=== PATIENT | male | born 1985 | race Asian ===

== ENCOUNTER 2018-12-02 14:43 | Emergency (ER) | payer SELFPAY ==
[~2018-12-02] VITALS: Ht 170.2 cm; Wt 80.0 kg
[~2018-12-02 14:43] MED LIST: LACT1CAP26 PO
[2018-12-02 14:53] VITALS: BP 136/96
== END 2018-12-02 16:32 | disposition left against medical advice (07) ==
LOC: ER 14:43
DX: Z02.89 Encounter for other administrative examinations (principal); Z53.21 Procedure and treatment not carried out due to patient leaving prior to being seen by health care provider; Z79.899 Other long term (current) drug therapy

== ENCOUNTER 2021-12-23 08:18 | Emergency (ER) | payer MEDICAID, OTHER ==
[~2021-12-23] VITALS: Ht 170.2 cm; Wt 84.1 kg
[2021-12-23 09:05] VITALS: BP 154/114
[2021-12-23] MEDS ORDERED: ACET-3068 PO (09:38)
[2021-12-23] MEDS ORDERED: PENI500T2 PO (09:38)
[2021-12-23] MEDS ORDERED: HYDROcodone/acetaminophen 10/325mg tab PO ONE (09:40)
[2021-12-23] MEDS ORDERED: penicillin V potassium 500mg tablet PO ONE (09:40)
== END 2021-12-23 10:18 | disposition home or self-care (01) ==
LOC: ER 08:19
DX: K04.7 Periapical abscess without sinus (principal); J45.909 Unspecified asthma, uncomplicated; F15.20 Other stimulant dependence, uncomplicated
CPT/HCPCS: 99283

== ENCOUNTER 2023-03-30 01:24 | Emergency (ER) | payer MEDICAID ==
[~2023-03-30] VITALS: Ht 172.7 cm; Wt 87.0 kg
[2023-03-30 01:47] VITALS: BP 138/88; PULSE 113; RESP 20; TEMP 102.4; O2SAT 96
[2023-03-30] MEDS: acetaminophen 325mg tablet PO ONE (02:27)
== END 2023-03-30 04:06 | disposition left against medical advice (07) ==
LOC: ER 01:24
DX: R05.9 Cough, unspecified (principal); R50.9 Fever, unspecified; Z20.822 Contact with and (suspected) exposure to COVID-19; Z53.21 Procedure and treatment not carried out due to patient leaving prior to being seen by health care provider
CPT/HCPCS: 36415; 87502; 87503; 87811; 99281

== ENCOUNTER 2024-05-18 17:38 | Emergency (ER) | payer MEDICAID, OTHER ==
[~2024-05-18] VITALS: Ht 170.2 cm; Wt 83.2 kg
[2024-05-19 02:56] VITALS: BP 149/98; PULSE 124; RESP 18; TEMP 100.4; O2SAT 100
== END 2024-05-18 19:38 | disposition home or self-care (01) ==
LOC: ER 17:39
DX: J06.9 Acute upper respiratory infection, unspecified (principal); J45.909 Unspecified asthma, uncomplicated; F15.90 Other stimulant use, unspecified, uncomplicated; Z79.899 Other long term (current) drug therapy; Z20.822 Contact with and (suspected) exposure to COVID-19
CPT/HCPCS: 36415; 71045; 87502; 87503; 87811; 99284

== ENCOUNTER 2025-01-27 22:40 | Emergency (ER) | payer OTHER ==
[~2025-01-27] VITALS: Ht 170.2 cm; Wt 94.0 kg
--- NOTE | 2025-01-27 22:58 | ELECTROCARDIOGRAPH REPORT ---
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 SANDRITA Quan Measurements Intervals [place] Rate: 84 P: 63 WI: 169 QRS: 66 QRSD: 88 T: 47 QT: 370 QTc: 438 Interpretive Statements Sinus rhythm Electronically Signed On 01-29-2025 18:09:[address] SANDRITA Quan Please click the below link to view image of tracing.
--- NOTE | 2025-01-28 | Physician Documentation ---
History of Present Illness ~ Chief Complaint: Ingestion Error Stated Complaint: COLD DIZZY Time Seen by MD: 00:00 Primary Medical Doctor: None Mode of Arrival: Wheelchair HPI Patient presents to the emergency room with altered mental status. He reports that he had a bunch of drugs and he had not feel meds. By the time that has able to evaluate patient he is feeling much better and asking to leave. Medication Reconciliation Allergies: Coded Allergies: No Known Allergies (Unverified , 12/23/21) Scheduled Lactobacillus Rhamnosus (Culturelle), 10,000 MMU PO BID Past Medical History Past Medical History: Asthma, *INFECTIOUS DZ* Past Surgical History: no surgical history Other Past Family History: NONE Alcohol Use: None Drug Use: methamphetamine Lives In: Home Review of Systems ROS All review of systems negative except as per HPI Physical Exam Vital Signs: Temperature: 97.8, Source: Oral, Heart Rate: 80, Respiratory Rate: 14, BP: 153/109, Pulse Oximetry: 97, Weight: 94.000 Oxygen Flow Rate: 0 General Appearance General: Patient is awake, alert, oriented x4 in no acute distress Head: Normocephalic and atraumatic. Eyes: Conjunctival normal. EOMI. PERRL. ENT: Mucous membranes moist. Neck: Supple, trachea is midline. Chest: Clear to auscultation bilaterally without rales, rhonchi, or wheezes. There is no accessory muscle use or retractions. Cardiac: RRR without murmurs, gallops, or rubs. Progress Results/Orders Results/Orders Completed Orders - BROOKS REYES MD Electrocardiogram (01/27/25 22:50) Vital Signs 01/27/25 01/27/25 01/27/25 22:43 23:09 23:11 Temp 97.8 97.8 Pulse 86 80 Resp 15 14 B/P (MAP) 151/112 153/109 (124) Pulse Ox 98 97 O2 Flow Rate 0 0 EKG/XRAY/CT/US/VASC/MRI EKG : Additional Comment EKG interpreted by myself shows time of 04/10/2055, rate 84, sinus rhythm, normal axis, no ST changes Medical Decision Making Additional information obtaine: N/A Findings Patient presents to the emergency room for evaluation of not feeling well in the lead of taking drugs. Symptoms have spontaneously improved. He had not feel emergent labs or imaging is necessary. EKGs reassuring. Patient has been advised to stop doing drugs Differential Dx:Considerations: Include: Alcohol abuse, Anxiety, Bipolar disorder, Conversion disorder, Delirium, Depression, Drug Overdose-Accidental, Drug Overdose-Intentional, Encephalopathy, Hallucinations, Homicidal, Liver failure, Panic disorder, Personality disorder, Renal failure, Respiratory failure, Schizophrenia, Substance abuse, Suicidal attempt, Suidical gesture, Other Departure Disposition: HOME / SELF CARE / HOMELESS Impression: Primary Impression: General medical exam Condition: Improved Discharge Instructions: General Discharge Instructions Referrals: NO PRIMARY CARE PROVIDER (PCP) Signature Scribe Signature: No scribe Attestation: The note accurately reflects work and decisions made by me.Brooks Reyes MD 01/28/25 00:05 BROOKS REYES MD Jan 28, 2025 00:00
[2025-01-28 00:11] VITALS: BP 145/104; PULSE 103; RESP 17; TEMP 97.8; O2SAT 96
== END 2025-01-28 00:12 | disposition home or self-care (01) ==
LOC: ER 22:41
DX: Z00.00 Encounter for general adult medical examination without abnormal findings (principal); R41.82 Altered mental status, unspecified; J45.909 Unspecified asthma, uncomplicated; F15.90 Other stimulant use, unspecified, uncomplicated; Z79.899 Other long term (current) drug therapy
CPT/HCPCS: 93005; 99283